=== PATIENT | female | born 1975 | race Hispanic/Latino ===

== ENCOUNTER 2018-07-23 22:57 | Emergency (ER) | payer SELFPAY ==
[2018-07-24] MEDS ORDERED: HYDROCODONE/APAP 10/325 TAB ONE (00:07)
[2018-07-24] MEDS ORDERED: DEXAMETHASONE 10 MG/ML VIAL ONE (00:07)
[2018-07-24] MEDS ORDERED: DIAZEPAM 5 MG TABLET ONE (00:08)
[2018-07-24] MEDS ORDERED: KETOROLAC 30 MG/ML INJ ONE (00:09)
--- NOTE | 2018-07-24 00:24 | ER ---
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 Transition of care: patient was not received from another setting of care. Onset of symptoms was July 20, 2018. Risk Assessment: Do you want to hurt yourself or someone else? Patient reports no desire to harm self or others. Initial Sepsis Screen: Does the patient meet any 2 criteria? No. Patient's initial sepsis screen is negative. Does the patient have a suspected source of infection? No. Patient's initial sepsis screen is negative. Care prior to arrival: None. 23:20 Method Of Arrival: Ambulatory bb 23:20 Acuity: JUWAN 4 bb Triage Assessment: 23:19 General: Appears in no apparent distress. comfortable, Behavior is calm, cooperative, cc3 appropriate for age. Pain: Complains of pain in right shoulder. EENT: No signs and/or symptoms were reported regarding the EENT system. Neuro: Level of Consciousness is awake, alert, obeys commands, Oriented to person, place, time, situation, Appropriate for age. Cardiovascular: Denies chest pain, Patient's skin is warm and dry. Respiratory: Airway is patent Respiratory effort is even, unlabored, Respiratory pattern is regular, symmetrical. GI: Abdomen is round non-distended. : No signs and/or symptoms were reported regarding the genitourinary system. Derm: Skin is intact, is healthy with good turgor, Skin is pink, warm \T\ dry. normal. Musculoskeletal: Circulation, motion, and sensation intact. Range of motion: limited in right shoulder. 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 - Social history:: Smoking status: Patient/guardian denies using tobacco. - Ebola Screening: : No symptoms or risks identified at this time. - Family history:: not pertinent. Screenin:19 Abuse screen: Denies threats or abuse. Denies injuries from another. Nutritional cc3 screening: No deficits noted. Tuberculosis screening: No symptoms or risk factors identified. Fall Risk Ambulatory Aid- None/Bed Rest/Nurse Assist (0 pts). Gait- Normal/Bed Rest/Wheelchair (0 pts) Mental Status- Oriented to own ability (0 pts). Assessment: 23:19 General: see triage assessment. cc3 07/24 00:55 Reassessment: Patient appears in no apparent distress at this time. Patient and/or cc3 family updated on plan of care and expected duration. Pain level reassessed. Patient is alert, oriented x 3, equal unlabored respirations, skin warm/dry/pink. Dr. Weinberg discharged the patient home with prescriptions given. No IV cannula in situ. Patient left ER vitally stable and ambulatory with her . Patient denies pain at this time. Patient states feeling better. Patient states symptoms have improved. Vital Signs: 07/23 23:22 BP 143 / 89; Pulse 86; Resp 16 S; Temp 98.3(O); Pulse Ox 100% on R/A; Weight 63.5 kg bb (R); Height 5 ft. 6 in. (167.64 cm) (R); Pain 9/10; 07/24 00:20 BP 139 / 87; Pulse 85; Resp 16 S; Pulse Ox 99% on R/A; cc3 07/23 23:22 Body Mass Index 22.60 (63.50 kg, 167.64 cm) ED Course: 07/23 23:02 Patient arrived in ED. es 23:15 Demond Weinberg MD is Attending Physician. sharda 23:19 Amena Valdez is Primary Nurse. cc3 23:19 Patient has correct armband on for positive identification. Placed in gown. Bed in low cc3 position. Call light in reach. Side rails up X 1. Pulse ox on. NIBP on. 23:21 Triage completed. bb 23:22 Arm band placed on Patient placed in an exam room, on a stretcher, on pulse oximetry. bb Family accompanied patient. 07/24 00:23 Evaristo Varela MD is Referral Physician. sharda 00:28 X-ray completed. Patient tolerated procedure well. kw 00:33 C Spine Ap/Lat XRAY In Process Unspecified. EDMS 00:33 Shoulder Right (2 View) XRAY In Process Unspecified. EDMS 00:55 No provider procedures requiring assistance completed. Patient did not have IV access cc3 during this emergency room visit. Administered Medications: 07/23 23:54 CANCELLED (Other Intervention Used): TORadol 60 mg IVP once cc3 07/24 00:00 Drug: Patriot 10 mg-325 mg 1 tabs Route: PO; cc3 00:30 Follow up: Response: No adverse reaction; Pain is decreased cc3 00:00 Drug: Valium 5 mg Route: PO; cc3 00:30 Follow up: Response: No adverse reaction cc3 00:03 Drug: TORadol 60 mg Route: IM; Site: right gluteus; cc3 00:30 Follow up: Response: No adverse reaction; Pain is decreased cc3 00:06 Drug: Decadron 10 mg Route: IM; Site: left gluteus; cc3 00:30 Follow up: Response: No adverse reaction cc3 Outcome: 00:24 Discharge ordered by . sharda 00:55 Discharged to home ambulatory, with family. cc3 00:55 Condition: stable 00:55 Discharge instructions given to patient, family, Instructed on discharge instructions, follow up and referral plans. medication usage, Demonstrated understanding of instructions, follow-up care, medications, Prescriptions given X 4. 00:57 Patient left the ED. cc3 Signatures: Dispatcher [employer] Demond Cohen MD MD cha Salyer, Edna es Ballard, Brenda, RN RN Angeles Vale Charlene cc3
--- NOTE | 2018-07-24 00:24 | EDPHYS ---
Physician Documentation [facility] Name: Randee Lindo Age: 43 yrs Sex: Female : 1975 Arrival Date: 07/23/2018 Time: 23:02 Bed 13 Private MD: ED Physician Demond Weinberg HPI: 07/23 23:39 This 43 yrs old Female presents to ER via Ambulatory with complaints of sharda Shoulder Pain. 23:39 The patient or guardian complains of decreased range of motion, pain. right shoulder sharda and right trapezius. Context: The problem was sustained. Onset: The symptoms/episode began/occurred 2 day(s) ago. Modifying factors: the symptoms are alleviated by nothing. Associated signs and symptoms: The patient has no apparent associated signs or symptoms. Severity of symptoms: At their worst the symptoms were moderate, in the emergency department the symptoms are unchanged. Treatment prior to arrival includes: no previous treatment. The patient has experienced a previous episode, last month. 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 - Social history:: Smoking status: Patient/guardian denies using tobacco. - Ebola Screening: : No symptoms or risks identified at this time. - Family history:: not pertinent. ROS: 23:39 Constitutional: Negative for fever, chills, and weight loss, Eyes: Negative for injury, sharda pain, redness, and discharge, ENT: Negative for injury, pain, and discharge, Neck: Negative for injury, pain, and swelling, Cardiovascular: Negative for chest pain, palpitations, and edema, Respiratory: Negative for shortness of breath, cough, wheezing, and pleuritic chest pain, Abdomen/GI: Negative for abdominal pain, nausea, vomiting, diarrhea, and constipation, Back: Negative for injury and pain, : Negative for injury, bleeding, discharge, and swelling, Skin: Negative for injury, rash, and discoloration, Neuro: Negative for headache, weakness, numbness, tingling, and seizure, Psych: Negative for depression, anxiety, suicide ideation, homicidal ideation, and hallucinations, Allergy/Immunology: Negative for hives, rash, and allergies, Endocrine: Negative for neck swelling, polydipsia, polyuria, polyphagia, and marked weight changes, Hematologic/Lymphatic: Negative for swollen nodes, abnormal bleeding, and unusual bruising. 23:39 MS/extremity: Positive for decreased range of motion, pain, swelling, tenderness, of the anterior aspect of right shoulder and posterior aspect of right shoulder. Exam: 23:39 Constitutional: This is a well developed, well nourished patient who is awake, alert, sharda and in no acute distress. Head/Face: Normocephalic, atraumatic. Eyes: Pupils equal round and reactive to light, extra-ocular motions intact. Lids and lashes normal. Conjunctiva and sclera are non-icteric and not injected. Cornea within normal limits. Periorbital areas with no swelling, redness, or edema. ENT: Nares patent. No nasal discharge, no septal abnormalities noted. Tympanic membranes are normal and external auditory canals are clear. Oropharynx with no redness, swelling, or masses, exudates, or evidence of obstruction, uvula midline. Mucous membranes moist. Neck: Trachea midline, no thyromegaly or masses palpated, and no cervical lymphadenopathy. Supple, full range of motion without nuchal rigidity, or vertebral point tenderness. No Meningismus. Chest/axilla: Normal chest wall appearance and motion. Nontender with no deformity. No lesions are appreciated. Cardiovascular: Regular rate and rhythm with a normal S1 and S2. No gallops, murmurs, or rubs. Normal PMI, no JVD. No pulse deficits. Respiratory: Lungs have equal breath sounds bilaterally, clear to auscultation and percussion. No rales, rhonchi or wheezes noted. No increased work of breathing, no retractions or nasal flaring. Abdomen/GI: Soft, non-tender, with normal bowel sounds. No distension or tympany. No guarding or rebound. No evidence of tenderness throughout. Back: No spinal tenderness. No costovertebral tenderness. Full range of motion. Skin: Warm, dry with normal turgor. Normal color with no rashes, no lesions, and no evidence of cellulitis. Neuro: Awake and alert, GCS 15, oriented to person, place, time, and situation. Cranial nerves II-XII grossly intact. Motor strength 5/5 in all extremities. Sensory grossly intact. Cerebellar exam normal. Normal gait. 23:39 Musculoskeletal/extremity: ROM: limited active range of motion, limited passive range of motion, Circulation is intact in all extremities. Sensation intact. Compartment Syndrome exam of affected extremity: is normal. DVT Exam: no swelling, negative Homans' sign noted on exam, no appreciated bluish discoloration, no erythema, no increased warmth, pain, tenderness. Vital Signs: 23:22 BP 143 / 89; Pulse 86; Resp 16 S; Temp 98.3(O); Pulse Ox 100% on R/A; Weight 63.5 kg bb (R); Height 5 ft. 6 in. (167.64 cm) (R); Pain 9/; 07/24 00:20 BP 139 / 87; Pulse 85; Resp 16 S; Pulse Ox 99% on R/A; cc3 07/23 23:22 Body Mass Index 22.60 (63.50 kg, 167.64 cm) bb MDM: 07/23 23:15 Patient medically screened. [facility] 23:41 Data reviewed: vital signs, nurses notes, lab test result(s), radiologic studies, plain sharda films. 07/23 23:39 Order name: C Spine Ap/Lat XRAY [facility] 07/23 23:39 Order name: Shoulder Right (2 View) XRAY [facility] 07/23 23:39 Order name: Urine Dipstick-Ancillary (obtain specimen); Complete Time: 00:57 [facility] 07/23 23:39 Order name: Urine Test (obtain specimen); Complete Time: 00:57 [facility] 07/23 23:39 Order name: Sling; Complete Time: 00:57 [facility] Administered Medications: 23:54 CANCELLED (Other Intervention Used): TORadol 60 mg IVP once cc3 07/24 00:00 Drug: [place] 10 mg-325 mg 1 tabs Route: PO; cc3 00:30 Follow up: Response: No adverse reaction; Pain is decreased cc3 00:00 Drug: Valium 5 mg Route: PO; cc3 00:30 Follow up: Response: No adverse reaction cc3 00:03 Drug: TORadol 60 mg Route: IM; Site: right gluteus; cc3 00:30 Follow up: Response: No adverse reaction; Pain is decreased cc3 00:06 Drug: Decadron 10 mg Route: IM; Site: left gluteus; cc3 00:30 Follow up: Response: No adverse reaction cc3 Disposition: 07/24/18 00:24 Discharged to Home. Impression: Pain in right shoulder - calcified tendonitis. - Condition is Stable. - Discharge Instructions: Joint Pain, Arthritis, Musculoskeletal Pain, Shoulder Pain, Shoulder Pain, [id number], Calcific Tendinitis. - Prescriptions for dexamethasone 4 mg Oral tablet - take 1 tablet by ORAL route every 24 hours; 7 tablet. Tylenol- Codeine #3 300-30 mg Oral Tablet - take 2 tablet by ORAL route every 6 hours As needed; 30 tablet. Valium 5 mg Oral Tablet - take 1 tablet by ORAL route every 8 hours As needed; 20 tablet. Motrin IB 200 mg Oral Tablet - take 2 tablet by ORAL route every 6 hours As needed as needed with food; 30 tablet. - Medication Reconciliation Form, Thank You Letter, Antibiotic Education, Prescription Opioid Use form. - Follow up: Private Physician; When: 2 - 3 days; Reason: Recheck today's complaints, Continuance of care, Re-evaluation by your physician. Follow up: Evaristo Varela; When: 2 - 3 days; Reason: Recheck today's complaints, Re-evaluation by your physician. - Problem is new. - Symptoms have improved. Signatures: Dispatcher [employer] EDMS Demond Weinberg MD MD cha Ballard, Brenda, RN RN Amena Deluna cc3 Corrections: (The following items were deleted from the chart) 07/23 23:54 23:39 TORadol 60 mg IVP once ordered. sharda wang 23:54 23:54 TORadol 60 mg IVP once ordered. 3 cc3 07/24 00:57 00:24 07/24/2018 00:24 Discharged to Home. Impression: Pain in right shoulder - cc3 calcified tendonitis. Condition is Stable. Discharge Instructions: Joint Pain, Musculoskeletal Pain, Shoulder Pain, Shoulder Pain, [id number]. Prescriptions for dexamethasone 4 mg Oral tablet - take 1 tablet by ORAL route every 24 hours; 7 tablet, Tylenol-Codeine #3 300-30 mg Oral Tablet - take 2 tablet by ORAL route every 6 hours As needed; 30 tablet, Valium 5 mg Oral Tablet - take 1 tablet by ORAL route every 8 hours As needed; 20 tablet, Motrin IB 200 mg Oral Tablet - take 2 tablet by ORAL route every 6 hours As needed as needed with food; 30 tablet. and Forms are Medication Reconciliation Form, Thank You Letter, Antibiotic Education, Prescription Opioid Use. Follow up: Private Physician; When: 2 - 3 days; Reason: Recheck today's complaints, Continuance of care, Re-evaluation by your physician. Follow up: Evaristo Varela; When: 2 - 3 days; Reason: Recheck today's complaints, Re-evaluation by your physician. Problem is new. Symptoms have improved. sharda
--- NOTE | 2018-07-24 08:53 | RAD REPORT ---
EXAM DESCRIPTION: RAD - C Spine Ap/Lat - 07/24/2018 12:28 am CLINICAL HISTORY: Neck pain/right shoulder pain FINDINGS: The alignment of the cervical spine is satisfactory. No fracture or dislocation is seen. Minimal spondylosis involves mid and distal cervical spine
--- NOTE | 2018-07-24 08:53 | RAD REPORT ---
EXAM DESCRIPTION: RAD - Shoulder Right 2 View - 07/24/2018 12:29 am CLINICAL HISTORY: Right shoulder pain FINDINGS: No fracture or dislocation is seen. 17 millimeter calcification adjacent to the lateral aspect of the humeral head likely indicates calci fic tendinitis Mild narrowing of the AC joint.
== END 2018-07-24 00:57 | disposition home or self-care (01) ==
LOC: ER 22:57
DX: M75.31 Calcific tendinitis of right shoulder (principal)
CPT/HCPCS: 72040; 96372; 99284